=== PATIENT | female | born 1990 | race Two or more races ===

== ENCOUNTER 2017-11-23 14:07 | Emergency (ER) | payer OTHER ==
[2017-11-23 16:04] LABS: HEMATOCRIT 37.9 % (36.0-47.0); HEMOGLOBIN 12.5 g/dl (12.0-15.5); MEAN CORPUSCULAR HEMOGLOBIN 30.6 pg (27.0-33.0); MEAN CORPUSCULAR VOLUME 92.7 fl (80.0-96.0); PLATELET COUNT, AUTOMATED 271 10^3/uL (150-450); RED BLOOD COUNT 4.09 10^6/uL (4.00-5.40); RED CELL DISTRIBUTION WIDTH 13.3 % (11.5-14.5); WHITE BLOOD COUNT 9.7 10^3/uL (4.0-10.0)
[2017-11-23 16:19] LABS: CONTROL LINE HCG INT CTR LINE PRESENT; HCG, SERUM QUALITATIVE NEGATIVE (NEGATIVE)
[2017-11-23 16:23] LABS: ANION GAP 6 MEQ/L (8-16); BLOOD UREA NITROGEN 13 MG/DL (7-18); CALCIUM LEVEL 8.6 MG/DL (8.5-10.1); CARBON DIOXIDE LEVEL 26 MEQ/L (21-32); CHLORIDE LEVEL 107 MEQ/L (98-107); GLOMERULAR FILTRATION RATE > 60.0 (>60); GLUCOSE, FASTING 88 MG/DL (70-100); SODIUM LEVEL 139 MEQ/L (136-145)
== END 2017-11-23 17:09 | disposition left against medical advice (07) ==
LOC: M ED 14:07
DX: R42 Dizziness and giddiness (principal); J02.0 Streptococcal pharyngitis; Z79.3 Long term (current) use of hormonal contraceptives
CPT/HCPCS: 84703

== ENCOUNTER 2018-04-30 10:06 | Day surgery (SDC) | payer OTHER ==
[2018-04-30 10:46] LABS: CONTROL LINE UCG INT CTR LINE PRESENT; URINE PREG TEST NEGATIVE (NEGATIVE)
[2018-04-30] MEDS: LR 1,000 ML IV (10:50)
[2018-04-30] MEDS ORDERED: ROCURONIUM BROMIDE 50 MG/5 ML VIAL As Ordered (11:06)
[2018-04-30] MEDS ORDERED: fentaNYL 250 MCG/5 ML INJECTION (J3010) As Ordered (11:06)
[2018-04-30] MEDS ORDERED: LIDOCAINE 2% INJ 100 MG/5 ML SDV (FOR ANES.) As Ordered (11:06)
[2018-04-30] MEDS ORDERED: PROPOFOL 200 MG/20 ML VIAL As Ordered (11:06)
[2018-04-30] MEDS ORDERED: MIDAZOLAM INJ 2 MG/2 ML VIAL (J2250) As Ordered (11:07)
[2018-04-30] MEDS ORDERED: BUPIVACAINE HCL 0.5% 10 ML VIAL As Ordered (11:08)
[2018-04-30] MEDS ORDERED: ONDANSETRON 4MG/2ML VIAL (J2405) As Ordered ×2 (12:18→14:15)
[2018-04-30] MEDS ORDERED: KETOROLAC 60 MG/2 ML VIAL (J1885) As Ordered (12:18)
[2018-04-30] MEDS ORDERED: METOCLOPRAMIDE INJ 10MG/2ML VIAL (J2765) As Ordered (12:18)
[2018-04-30] MEDS ORDERED: dexameTHASONE 4 MG/ML 1ML VIAL (J1100) As Ordered ×2 (12:18)
[2018-04-30] MEDS ORDERED: NEOSTIGMINE 10 MG/10 ML VIAL (J2710) As Ordered (12:19)
[2018-04-30] MEDS ORDERED: GLYCOPYRROLATE INJ 0.2 MG/ML 2 ML VIAL As Ordered (12:19)
[2018-04-30] MEDS ORDERED: HYDROcodone/APAP LIQUID 7.5-325MG 15ML UDC (LORTAB ELIXIR) PO (13:00)
[2018-04-30] MEDS ORDERED: PERCOCET 5MG/325MG TAB PO ×2 (13:00)
[2018-04-30] MEDS ORDERED: fentaNYL 100 MCG/2 ML INJECTION (J3010) IV (13:00)
[2018-04-30] MEDS ORDERED: LR 1,000 ML IV (13:00)
[2018-04-30] MEDS ORDERED: MORPHINE 10 MG/ML 1ML VIAL (J2270) IV (13:00)
[2018-04-30] MEDS: ONDANSETRON 4MG/2ML VIAL (J2405) IV (14:17)
== END 2018-04-30 14:30 | disposition home or self-care (01) ==
LOC: M SDC 10:06
DX: J35.01 Chronic tonsillitis (principal); Z79.899 Other long term (current) drug therapy
CPT/HCPCS: 42826

== ENCOUNTER 2018-10-09 14:47 | Emergency (ER) | payer OTHER ==
[~2018-10-09] VITALS: Ht 165.1 cm; Wt 71.6 kg
[~2018-10-09 14:47] MED LIST: PENI500T PO; YAZ1TAB PO
[2018-10-09] MEDS ORDERED: [UNRECOGNIZED DRUG - CODE] PO (14:51)
[2018-10-09 16:39] LABS: INFLUENZA A AMPLIFICATION POSITIVE (NEGATIVE); INFLUENZA B AMPLIFICATION NEGATIVE (NEGATIVE)
[2018-10-09] MEDS ORDERED: OSEL75CA PO (16:58)
[2018-10-09 17:04] VITALS: BP 134/83
== END 2018-10-09 17:07 | disposition home or self-care (01) ==
LOC: M ED 14:47
DX: J09.X9 Influenza due to identified novel influenza A virus with other manifestations (principal)